=== PATIENT | female | born 1955 | race Caucasian/White ===

== ENCOUNTER 2023-10-01 10:02 | Day surgery (SDC) | payer MEDICARE, OTHER ==
[~2023-10-01] VITALS: Ht 157.5 cm; Wt 115.9 kg
[~2023-10-01 10:02] MED LIST: LR 1,000 ML IV SCH; Ondansetron 4 MG/2 ML VIAL IV PRN
[2023-10-01 11:29] VITALS: BP 126/82; PULSE 92; TEMP 97.8
[2023-10-01] MEDS ORDERED: MOTRIN 800800 MG/TAB PO (11:34)
[2023-10-01] MEDS ORDERED: ASPIRIN 32325 MG/TAB PO (11:35)
[2023-10-01] MEDS ORDERED: GLUCOSAMINE & C1 CA1 PO (11:36)
[2023-10-01] MEDS ORDERED: PRINIVIL20 MG PO (11:37)
[2023-10-01] MEDS ORDERED: HCTZ12.5TAB PO (11:37)
[2023-10-01] MEDS ORDERED: ZYRTEC 10MG10 MG PO (11:38)
[2023-10-01] MEDS ORDERED: MULTIPLE VITAMI1 CAP PO (11:38)
[2023-10-01] MEDS ORDERED: CRESTOR20 MG PO (11:40)
[2023-10-01] MEDS ORDERED: MASON NATURAL2000 IU PO (11:43)
[2023-10-01] MEDS ORDERED: LOPRESSOR 225 MG/TAB PO (11:44)
[2023-10-01] MEDS ORDERED: MELATONIN5 M1 PO (11:44)
--- NOTE | 2023-10-01 11:45 | NUR ---
PATIENT ADMITTED TO [facility] PER MOTORIZED SCOOTER. ABLE TO WALK FROM HALLWAY INTO ROOM AND SIT IN RECLINER. DYSPNEIC WITH EXERTION. PATIENT IS ACCOMPANIED BY SPOUSE. ALERT AND ORIENTED. CONSENTS SIGNED AND READIED FOR THE PROCEDURE.
[2023-10-01] MEDS ORDERED: SPIRIVA RE2.5 MCG/Ac IH (11:49)
[2023-10-01] MEDS ORDERED: PROAIR HFA0.09 MG/AC IH (11:49)
[2023-10-01] MEDS ORDERED: VITAMIND3 5000 PO (11:54)
[2023-10-01 12:05] VITALS: BP 135/82; PULSE 66; TEMP 96.5
[2023-10-01 12:15] VITALS: BP 131/64; PULSE 73
[2023-10-01 12:30] VITALS: BP 115/77; PULSE 75
[2023-10-01 12:45] VITALS: BP 128/52; PULSE 84
--- NOTE | 2023-10-01 13:00 | NUR ---
1205- PATIENT RETURNS TO [facility] [place] [facility] VIA CART. PT AWAKE AND ALERT. RESPIRATIONS UNLABORED. AMBULATED TO RECLINER CHAIR WITH 2:1 SBA. PT DENIES NAUSEA OR ABDOMINAL PAIN. HOOKED UP TO MONITOR AND VS OBTAINED. CALL LIGHT AT SIDE AND PRESENT. 1213- PATIENT TOLERATING DIET PEPSI AND MUFFIN WITHOUT NAUSEA OR ABD PAIN. 1230- D/C INSTRUCTIONS REVIEWED WITH PATIENT. PT VERBALIZED UNDERSTANDING AND A COPY OF INSTRUCTIONS PROVIDED IN D/C FOLDER. 1240- PATIENT DRESSES SELF. 1245- DR. DAMIAN IN ROOM SPEAKING WITH PATIENT. 1300- PATIENT DISCHARGED FROM UNIT VIA W/C TO A PERSONAL VEHICLE. PT LEFT HOSPITAL IN STABLE CONDITION.
== END 2023-10-01 13:00 | disposition home or self-care (01) ==
LOC: SDCO 10:02
DX: Z12.11 Encounter for screening for malignant neoplasm of colon (principal); D12.5 Benign neoplasm of sigmoid colon; D12.8 Benign neoplasm of rectum; K57.31 Diverticulosis of large intestine without perforation or abscess with bleeding; K52.9 Noninfective gastroenteritis and colitis, unspecified; F17.210 Nicotine dependence, cigarettes, uncomplicated
CPT/HCPCS: J2704; J7120